=== PATIENT | male | born 1985 | race Caucasian/White ===

== ENCOUNTER 2021-03-12 16:06 | Emergency (ER) | payer SELFPAY ==
[2021-03-12 16:12] VITALS: BP 148/84; PULSE 91; RESP 18; TEMP 36.2; O2SAT 96
--- NOTE | 2021-03-12 16:24 | ED.WOUNDLAC ---
HPI - Wound/Laceration General Chief Complaint: Wound/Laceration Stated Complaint: cut finger Time Seen by Provider: 03/12/21 16:24 Source: patient Mode of arrival: ambulatory Limitations: no limitations History of Present Illness HPI narrative: 35-year-old male presents to the ER with a 2 cm laceration on the left lateral proximal phalanx of the index finger. He is right handed. He was using the clippers and accidentally cut his left index finger. The patient is up-to-date on his tetanus immunization. No other complaints. Onset (ago): minute(s) ( 45 minutes ago.) Location: other ( Left index finger) Extremity Location: Left: hand Place: home Patient tetanus UTD: Yes Context: accidental Associated symptoms: none Related Data Home Medications Medication Instructions Recorded Confirmed No Home Medications 03/12/21 03/12/21 Allergies Allergy/AdvReac Type Severity Reaction Status Date / Time tramadol AdvReac Unknown nausea/trouble Unverified 03/12/21 16:20 urinating Review of Systems Review of Systems: All systems reviewed & are unremarkable except as noted in HPI and below Exam Const: General: cooperative and healthy appearing HENMT: Head: normal to inspection Ears: hearing grossly normal bilaterally General nose exam: Normal external nose present Face and sinus: normal facial exam Mouth: Yes Normal oral and palatal mucosa present Throat: posterior oropharynx normal Eyes: General: appearance normal, both eyes and all related structures Neck: Neck: normal visual inspection Thyroid: thyroid normal Chest: Chest palpation & inspection: normal inspection of the chest Resp: Effort & Inspection: normal respiratory effort Auscultation: clear to auscultation bilaterally Cardio: Palpation: normal PMI Rate: regular rate Rhythm: regular rhythm Heart sounds: S1 normal heart sound present and S2 normal heart sound present GI: Inspection: normal to inspection : General: Yes bimanual renal exam normal bilaterally Back/Spine/Pelvis: Back: no CVA tenderness Skin: General skin exam: normal color Neuro: General: oriented to person, oriented to place, oriented to time and patient oriented x3 Cranial nerves: Yes CN's II-XII intact bilaterally Coordination: [id number] test normal Extrem: General: normal to inspection and full ROM Left upper extremity: hand ( 2 cm full-thickness skin laceration-L lateral proximal phalanx of index fi) normal capillary refill, neuromotor exam normal and neurosensory exam normal Psych: Appearance: grossly normal Course Course Emergency Course: The wound was cleaned with antiseptic. The 2 cm laceration was glued with Dermabond. Finger splint was applied to the wound. Vital Signs Vital signs: Vital Signs Temperature 36.2 C L 03/12/21 16:12 Pulse Rate 91 03/12/21 16:12 Respiratory Rate 18 03/12/21 16:12 Blood Pressure 148/84 H 03/12/21 16:12 Pulse Oximetry 96 03/12/21 16:12 Temperature 36.2 C L 03/12/21 16:12 Pulse Rate 91 03/12/21 16:12 Respiratory Rate 18 03/12/21 16:12 Blood Pressure 148/84 H 03/12/21 16:12 Pulse Oximetry 96 03/12/21 16:12 Procedures Laceration Laceration 1: Date: 03/12/21 Time: 16:43 Site: hand ( finger) Side (If applicable): left Size (cm): 2 Description: linear Depth: simple, single layer Pre-repair: wound explored ====== Skin Level ====== Skin layer closed with: dermabond ====== Subcutaneous Layer ====== ====== Muscle Layer ====== ====== Tendon Layer ====== Dressing: finger splint applied to prevent dehiscence. MDM - Wound/Laceration MDM Narrative Medical decision making narrative: Finger laceration Medical Records Medical records narrative: finger laceration. No tendon injury. Distal motor sensory was intact. Discharge Plan Discharge Clinical Impression: Finger laceration Qualifiers: Encount
--- NOTE | 2021-03-12 16:36 | PC.NURSE ---
gauze and aluminum finger splint applied to left index after repaired.
== END 2021-03-12 16:48 | disposition home or self-care (01) ==
PROVIDERS: Emergency Provider Internal Medicine Critical Care Medicine
DX: S61.211A Laceration without foreign body of left index finger without damage to nail, initial encounter (principal); W45.8XXA Other foreign body or object entering through skin, initial encounter
CPT/HCPCS: 12001; 99282

== ENCOUNTER 2023-11-05 23:05 | Emergency (ER) | payer SELFPAY ==
[2023-11-05 23:06] VITALS: BP 179/93; PULSE 69; RESP 18; TEMP 36.3; O2SAT 98
--- NOTE | 2023-11-05 23:10 | ED.DENTAL ---
HPI - Dental/Oral General Chief complaint: Dental/Oral Stated complaint: tooth pain Time Seen by Provider: 11/05/23 23:08 Source: patient Mode of arrival: ambulatory Limitations: no limitations History of Present Illness HPI Narrative: 38 year old male presents to the Emergency Department complaining of dental pain to left lower front tooth. States broke off several days ago. Has been taking Tylenol without relief. Uses marijuana daily [for anxiety] MD Complaint: tooth pain Onset (ago): day(s) (several) Duration: constant Severity: severe Relieving factors: nothing Exacerbating factors: nothing Context: poor dental care Associated symptoms: ear pain Treatment prior to arrival: oral analgesic (tylenol) Related Data Allergies Allergy/AdvReac Type Severity Reaction Status Date / Time tramadol AdvReac Unknown nausea/trouble Unverified 03/12/21 16:20 urinating Review of Systems Review of Systems: All systems reviewed & are unremarkable except as noted in HPI and below Constitutional: Constitutional: Reports as per HPI, Denies chills and Denies fever(s) Eyes: Eyes: Reports as per HPI ENT: Reports system reviewed and no additional complaints, except as documented Cardiovascular: Cardiovascular: Reports as per HPI and Denies chest pain Respiratory: Respiratory: Reports as per HPI and Denies dyspnea Gastrointestinal: Gastrointestinal: Reports as per HPI, Denies diarrhea, Denies nausea and Denies vomiting Genitourinary: Genitourinary: Reports no additional male genitourinary complaints Musculoskeletal: Musculoskeletal: Reports no additional musculoskeletal complaints Integumentary/Breasts: Skin/Breast: Reports system reviewed and no additional complaints, except as docu Neurologic: Reports system reviewed and no additional complaints, except as documented Psychiatric: Psychiatric: Reports no additional psychiatric complaints Endocrine: Endocrine: Reports no additional endocrine complaints Hematologic/Lymphatic: Hematologic/Lymphatic: Reports no additional hematologic/lymphatic complaints Allergic/Immunologic: Allergic/Immunologic: Reports no additional allergic/immunologic complaints Exam Const: General: healthy appearing Nutritional Appearance: well nourished Orientation/consciousness: patient oriented x3 Limitations: no limitations HENMT: Head: normal to inspection Ears: external ears normal Face/Nose/Sinus: Normal external nose present Face and sinus: normal facial exam Throat: posterior oropharynx normal Other: diffuse dental decay Eyes: Conjunctivae: conjunctivae normal Pupils: Equal, round and reactive pupils present EOM: EOMs intact bilaterally Direct Ophthalmoscopy: no photophobia Neck: Neck: normal visual inspection and no lymphadenopathy Chest: Chest palpation & inspection: normal inspection of the chest Resp: Effort & Inspection: normal respiratory effort Cardio: Rate: regular rate GI: Inspection: non-distended Back/Spine/Pelvis: Back: no CVA tenderness Skin: General skin exam: normal color Rashes: no rashes Neuro: General: patient oriented x3 Speech: normal speech Gait exam (Neuro): Normal gait present Other: grossly normal Extrem: General: normal to inspection Psych: Mental Status: mental status grossly normal Course Course Emergency Course: 38 y/o male presents to the Emergency Department complaining of dental pain. Onset several days ago. PE: diffuse dental decay Tx: Augmentin 875 mg po, [place] 10 mg po Rx and Instructions Vital Signs Vital signs: Vital Signs Temperature 36.3 C L 11/05/23 23:06 Pulse Rate 69 11/05/23 23:06 Respiratory Rate 18 11/05/23 23:06 Blood Pressure 179/93 H 11/05/23 23:06 Pulse Oximetry 98 11/05/23 23:06 Oxygen Delivery Room Air 11/05/23 23:06 Temperature 36.3 C L 11/05/23 23:06 Pulse Rate 69 11/05/23 23:06 Respiratory Rate 18 11/05/23 23:06 Blood Pressure 179/93 H 11/05/23 23:06
[2023-11-05] MEDS: HYDROcodone/acetaminophen (*CRX) 10-325 MG TABLET 1 TAB PO (23:38)
[2023-11-05] MEDS: AMOXICILLIN/CLAVULANATE K 875-125 MG TAB 1 TABLET PO (23:38)
== END 2023-11-05 23:53 | disposition home or self-care (01) ==
PROVIDERS: Emergency Provider Emergency Medicine
DX: F41.9 Anxiety disorder, unspecified (principal); R06.02 Shortness of breath; R07.89 Other chest pain; F17.200 Nicotine dependence, unspecified, uncomplicated
CPT/HCPCS: 99283; A9270

== ENCOUNTER 2024-02-05 16:02 | Emergency (ER) | payer SELFPAY ==
[2024-02-05 16:03] VITALS: BP 133/99; PULSE 76; RESP 18; TEMP 36.8; O2SAT 99
--- NOTE | 2024-02-05 16:12 | ED.GENADULT ---
HPI - General Adult General Chief complaint: Dental/Oral Stated complaint: tooth pain Time Seen by Provider: 02/05/24 16:12 Source: patient Mode of arrival: ambulatory Limitations: no limitations History of Present Illness HPI narrative: 38-year-old white male states he broke off a tooth, his cuspid left lower 1 week ago. Couple days ago it started swelling around the gum and hurting more. He has been taking Tylenol and ibuprofen. Denies any fever problems eating or drinking voiding or stooling cough shortness of breath other swelling lumps or bumps or any other complaints. Related Data Allergies Allergy/AdvReac Type Severity Reaction Status Date / Time tramadol AdvReac Unknown nausea/trouble Verified 02/05/24 16:04 urinating Review of Systems Review of Systems: All systems reviewed & are unremarkable except as noted in HPI and below PMFSH Comments Family history of bad teeth Exam Narrative: White male patient with no apparent distress.? Head normocephalic, atraumatic.? Eyes conjunctiva pink sclera nonicteric.? ? Oropharynx is clear with moist mucous membranes without exudates.? rotted teeth and missing teeth everywhere his left lower canine is broken off and decayed with surrounding gum tenderness. Neck is supple nontender no lymphadenopathy.?? Lungs are clear.? Heart is regular rate and rhythm without murmurs gallops or rubs .? Skin is warm and dry without rashes or lesions.? Neurological patient is alert and oriented x4.? Motor and sensory grossly intact.? Gait is normal. Course Vital Signs Vital signs: Vital Signs Oxygen Delivery Room Air 02/05/24 16:02 Temperature 36.8 C 02/05/24 16:03 Pulse Rate 76 02/05/24 16:03 Respiratory Rate 18 02/05/24 16:03 Blood Pressure 133/99 H 02/05/24 16:03 Pulse Oximetry 99 02/05/24 16:03 Oxygen Delivery Room Air 02/05/24 16:03 Medical Decision Making [facility] Narrative Medical decision making narrative: ? Patient placed in room: Three ? History and physical was performed. Independent Historian: patient External Source Review: Differential Dx includes but not limited to: dental abscess tooth decay Medications were Reviewed: home meds reviewed Medications given: Independently Interpreted by me: Shared decision Making: evaluation was discussed all questions were asked and answered patient agreed with the plan. He will take Pen VK 500 twice a day for 10 days follow up with his dentist. Social Situation Impacting Patients Care: Family history of bad teeth a young age. Discussed with Dr. IRIZARRY DIAGNOSIS: Dental abscess DISPOSITION : discharge CONDITION AT DISCHARGE: stable Vital Signs Vital Signs: Vital Signs Oxygen Delivery Room Air 02/05/24 16:02 Temperature 36.8 C 02/05/24 16:03 Pulse Rate 76 02/05/24 16:03 Respiratory Rate 18 02/05/24 16:03 Blood Pressure 133/99 H 02/05/24 16:03 Pulse Oximetry 99 02/05/24 16:03 Oxygen Delivery Room Air 02/05/24 16:03 Discharge Plan Discharge Clinical Impression: Dental abscess Patient Disposition: Home, Self-Care Condition: Stable Instructions: Antibiotic Form, Dental Abscess (ED) Additional Instructions: Pen-VK 250 m tablets twice a day for 10 days. Follow-up with your dentist. Take Tylenol and/or ibuprofen for pain as needed. Return if you get worse or develops any new symptoms. Prescriptions: New penicillin V potassium 250 mg tablet 500 mg PO Q12H 10 Days Qty: 40 0RF Follow-up/Referrals: UNKNOWN,DOCTOR [Primary Care Provider] - Time of Disposition: 16:31
== END 2024-02-05 16:43 | disposition home or self-care (01) ==
LOC: CHSED 16:39
PROVIDERS: Emergency Provider Emergency Medicine
DX: K04.7 Periapical abscess without sinus (principal)
CPT/HCPCS: 99283

== ENCOUNTER 2024-08-20 12:19 | Emergency (ER) | payer SELFPAY ==
[2024-08-20 12:20] VITALS: BP 139/88; PULSE 71; RESP 16; TEMP 36.6; O2SAT 97
--- NOTE | 2024-08-20 12:25 | ED_ITS ---
HPI - Wound/Laceration General Chief Complaint: Wound/Laceration Stated Complaint: cut left hand thumb Time Seen by Provider: 08/20/24 12:25 Source: patient Mode of arrival: ambulatory Limitations: no limitations History of Present Illness HPI narrative: 39-year-old male with no significant past medical history presented to the ED with -- left thumb superficial laceration which is U- shaped with a 0.5 cm traumatic ulcer. He got hurt while cutting vegetables. no other injuries noted. This happened prior to coming to the ED. Onset (ago): hour(s) ( 1 hour) Extremity Location: Left: hand Body four view annotation: 2 1. U shape but superficial laceration measuring 2 cm 2. 0.[address]: work Patient tetanus UTD: No Context: accidental Associated symptoms: none Related Data Allergies Allergy/AdvReac Type Severity Reaction Status Date / Time tramadol AdvReac Unknown nausea/trouble Verified 02/05/24 16:04 urinating Review of Systems 2 Review of Systems: All systems reviewed & are unremarkable except as noted in HPI and below Exam 2 Narrative: vitals are stable Const: General: healthy appearing Nutritional Appearance: well nourished Orientation/consciousness: patient oriented x3 Limitations: no limitations HENMT: Head: normal to inspection Ears: external ears normal F ghulam/Nose/Sinus: Normal external nose present Face and sinus: normal facial exam Mouth: Yes Normal oral and palatal mucosa present Throat: posterior oropharynx normal Eyes: Conjunctivae: conjunctivae normal Pupils: Equal, round and reactive pupils present EOM: EOMs intact bilaterally Direct Ophthalmoscopy: no photophobia Neck: Neck: normal visual inspection, no lymphadenopathy and no meningeal signs Chest: Chest palpation & inspection: normal inspection of the chest Resp: Effort & Inspection: normal respiratory effort Auscultation: clear to auscultation bilaterally Cardio: Rate: regular rate Rhythm: regular rhythm GI: GI Palp: Yes Soft to palpation Auscultation: normal bowel sounds O ther: no tenderness/rigidity /rebound Back/Spine/Pelvis: Back: no CVA tenderness Skin: General skin exam: normal color Rashes: no rashes Other: left thumb has a U-shaped superficial laceration measuring 2 cm 0.5 cm traumatic ulcer Neuro: General: patient oriented x3, moves all extremities and no meningeal signs Cranial nerves: Yes Nystagmus not present Speech: normal speech G ait exam (Neuro): Normal gait present Extrem: General: normal to inspection Other: left thumb laceration/traumatic ulcer Psych: Mental Status: mental status grossly normal Affect: normal affect Attitude: cooperative Course Course Emergency Course: thumb laceration-- glued with Dermabond Vital Signs Vital signs: Vital Signs Temperature 36.6 C 08/20/24 12:20 Pulse Rate 71 08/20/24 12:20 Respiratory Rate 16 08/20/24 12:20 Blood Pressure 139/88 08/20/24 12:20 Pulse Oximetry 97 08/20/24 12:20 Oxygen Delivery Room Air 08/20/24 12:20 Temperature 36.6 C 08/20/24 12:20 Pulse Rate 71 08/20/24 12:20 Respiratory Rate 16 08/20/24 12:20 Blood Pressure 139/88 08/20/24 12:20 Pulse Oximetry 97 08/20/24 12:20 Oxygen Delivery Room Air 08/20/24 12:20 Procedures Laceration Laceration 1: Date: 08/20/24 Time: 12:48 Site: upper extremity and hand Size (cm): 2 Description: irregular Depth: simple, single layer ====== Skin Level ====== Skin layer closed with: dermabond ====== Subcutaneous Layer ====== ====== Muscle Layer ====== ====== Tendon Layer ====== MDM - Wound/Laceration MDM Narrative Medical decision making narrative: thumb laceration Differential Diagnosis Differential diagnosis: Likely laceration and avulsion of skin Discharge Plan Discharge Clinical Impression: Laceration of thumb Patient Disposition: Home Condition: Stable Instructions: Antibiotic Form, Finger Laceration (ED) Patient Language: Yakut Prescriptions: No Action penicillin V potassium 250 mg tablet 500 mg PO Q12H 10 Days Qty: 40 0RF Follow-up/Referrals: UNKNOWN,DOCTOR [Non-Staff] - Stand Alone Forms: Work/School Release IP Time of Disposition: 12:49
[2024-08-20] MEDS: TETANUS,DIPHTHERIA,AC PERTUSSIS ADULT 0.5 ML (ADACEL) IM (12:48)
== END 2024-08-20 13:02 | disposition home or self-care (01) ==
LOC: CHSED 12:59
PROVIDERS: Emergency Provider Internal Medicine Critical Care Medicine; PCP Family Medicine
DX: S61.012A Laceration without foreign body of left thumb without damage to nail, initial encounter (principal); W26.0XXA Contact with knife, initial encounter; Z23 Encounter for immunization
CPT/HCPCS: 12001; 90471; 90715; 99283

== ENCOUNTER 2025-02-03 12:52 | Emergency (ER) | payer SELFPAY ==
--- NOTE | ~2025-02-03 | CT_ITS ---
EXAMINATION: CT abdomen pelvis wo con, 02/03/2025 13:50 CDT HISTORY: LBP, dark urine, +strep COMPARISON: No comparisons available. TECHNIQUE: CT scan of the abdomen and pelvis was performed without IV contrast. One or more of the following dose reduction techniques were used: automated exposure control, adjustment of the mA and/or kV according to patient size, use of iterative reconstruction technique. Unless otherwise stated, incidental findings do not require dedicated follow up imaging FINDINGS: CT abdomen: LUNG BASES: The lung bases are clear. The visualized portions of the heart and pericardium are unremarkable. LIVER: Unremarkable, liver contours intact, no lesions. SPLEEN: Unremarkable, no splenomegaly. KIDNEYS: Right Kidney: Right kidney 3 mm renal calculus, no hydronephrosis or hydroureter. Left Kidney: Left kidney renal calculi noted the largest in the renal pelvis 3 x 3 mm, no hydronephrosis or hydroureter. ADRENAL GLANDS: Unremarkable. PANCREAS: Unremarkable. GALLBLADDER/BILIARY: Unremarkable. No biliary dilatation. STOMACH AND ESOPHAGUS: Visualized stomach and esophagus within normal limits. BOWEL/MESENTERY: Moderate fecal content, no colitis or diverticulitis. Appendix normal. Mesentery normal. Small bowel normal. ADENOPATHY/RETROPERITONEUM: No lymphadenopathy. AORTA/VASCULATURE: Normal caliber aorta. FREE FLUID OR FREE AIR: None. CT pelvis: SOLID ORGANS/REPRODUCTIVE: Unremarkable. BLADDER: Within normal limits. OSSEOUS STRUCTURES: No acute osseous abnormality.No suspicious lesions. OVERLYING SOFT TISSUES: Unremarkable. IMPRESSION: 1. Bilateral renal calculi. No hydronephrosis Reviewed, dictated and finalized at location P.
[2025-02-03 12:52] VITALS: BP 162/104; PULSE 84; RESP 16; TEMP 36.8; O2SAT 97; O2SAT 98
[2025-02-03 13:24] LABS: Hematocrit 42.8 % (40.0-54.0); Hemoglobin 15.0 g/dL (14.0-18.0); Immature Granulocyte Percent A 0.6 % (0.0-0.0); Lymphocytes Absolute Auto 1.51 K/mm3 (1.10-4.50); Mean Corpuscular HGB Conc 35.0 g/dL (32-36); Mean Corpuscular Hemoglobin 31.0 pg (27.0-31.0); Mean Corpuscular Volume 88.4 fL (78.0-102.0); Nucleated Red Blood Cells Absolute Auto 0.00 K/mm3 (0.00-0.00); Nucleated Red Blood Cells Perc 0.0 % (0-0.0); Platelet Count Result 225 K/mm3 (150-420); Red Blood Count 4.84 M/mm3 (4.70-6.10); White Blood Count 16.3 K/mm3 (4.8-10.8)
[2025-02-03 13:41] LABS: Add Urine Microscopic? YES; Appearance Urine Cloudy (Clear); Glucose Urine UA Negative (Negative); Leukocyte Esterase Ur Negative (Negative); Nitrate Urine Negative (Negative); Specific Grav Ur 1.025 (1.010-1.020)
[2025-02-03 13:44] LABS: Anion Gap 12 mmol/L (4-12); Blood Urea Nitrogen 17 mg/dL (9-20); Calcium 10.0 mg/dL (8.4-10.2); Carbon Dioxide 24 mmol/L (22-30); Chloride 101 mmol/L (98-107); Estimated CRCL calculation 78 ml/min; Estimated Glomerular Filt Rate > 60; Glucose 127 mg/dL (65-110); Osmolality Calculated 287 mOsm/kg (285-295); Potassium 3.6 mmol/L (3.4-5.0); Sodium 137 mmol/L (137-145)
[2025-02-03 13:45] LABS: Strep Group A RT-PCR DETECTED (Negative)
[2025-02-03 14:00] LABS: Influenza A QL RT-PCR Negative (Negative); Influenza B QL RT-PCR Negative (Negative); RSV RNA, RT-PCR Negative (Negative); SARS-CoV-2 RNA PCR Negative (Negative)
[2025-02-03 14:08] VITALS: BP 150/87; PULSE 75; RESP 16; O2SAT 99
--- NOTE | 2025-02-03 14:33 | ED_ITS ---
HPI - General Adult General Chief complaint: Upper Respiratory Infection Stated complaint: sore throat, fever, nausea Time Seen by Provider: 02/03/25 13:06 Source: patient Mode of arrival: ambulatory Limitations: no limitations History of Present Illness HPI narrative: 39-year-old otherwise healthy here complaints of sore pain, not feeling well for past few days also has dysuria. has occasional cough which is he states that he had fever chills. Denies any nausea vomiting or pain. Has some occasional low back pain. Onset (ago): day(s) (1) Location: back Severity: moderate Quality: aching Pain Consistency: constant Relieving factors: none Exacerbating factors: none Associated symptoms: denies other symptoms Treatments prior to arrival: other ( Tylenol) Related Data Allergies Allergy/AdvReac Type Severity Reaction Status Date / Time tramadol AdvReac Unknown nausea/trouble Verified 02/03/25 13:06 urinating Review of Systems 2 Review of Systems: All systems reviewed & are unremarkable except as noted in HPI and below Constitutional: Constitutional: Reports no additional constitutional complaints ENT: Reports as per HPI Cardiovascular: Cardiovascular: Reports no additional cardiovascular complaints Respiratory: Respiratory: Reports as per HPI Gastrointestinal: Gastrointestinal: Reports no additional gastrointestinal complaints Genitourinary: Genitourinary: Reports as per HPI Musculoskeletal: Musculoskeletal: Reports as per HPI Integumentary/Breasts: Skin/Breast: Reports as per HPI Neurologic: Reports system reviewed and no additional complaints, except as documented Exam 2 Narrative: GENERAL: Well-appearing, well-nourished, and in no acute distress. HEAD: Normocephalic, atraumatic. EYES: PERRLA and EOMI. ENT: Nares clear, no rhinorrhea or epistaxis. Mucous membranes moist. uvula midline minimal erythema of the left tonsil no exudate NECK: Supple. CHEST: Clear to auscultation. No respiratory distress. HEART: Regular rate and rhythm. No murmur heard. Normal peripheral pulses. ABDOMEN: Soft, nontender, nondistended, normal active bowel sounds. EXTREMITIES: Normal range of motion. No edema. SKIN: Warm, dry, no rash. NEURO: No focal deficits. Alert and oriented x3. PSYCH: Normal mood and affect. Course Course Emergency Course: I did review his lab work UA was positive for blood will do CT of the abdomen rule out ureteral stone. Otherwise his the strep screen was positive and WBC count was 16,000 will give IM Rocephin 1 g. Vital Signs Vital signs: Vital Signs Temperature 36.8 C 02/03/25 12:52 Pulse Rate 84 02/03/25 12:52 Respiratory Rate 16 02/03/25 12:52 Blood Pressure 162/104 H 02/03/25 12:52 Pulse Oximetry 98 02/03/25 12:52 Oxygen Delivery Room Air 02/03/25 12:52 Temperature 36.8 C 02/03/25 12:52 Pulse Rate 75 02/03/25 14:08 Respiratory Rate 16 02/03/25 14:08 Blood Pressure 150/87 H 02/03/25 14:08 Pulse Oximetry 99 02/03/25 14:08 Oxygen Delivery Room Air 02/03/25 14:08 Medical Decision Making MDM Narrative Medical decision making narrative: 39-year-old otherwise disorder, dysuria new lab work including CBC chemistry strep screen and UA and a CT of the abdomen has he was complaining of flank pain Differential Diagnosis Differential Diagnosis: viral pharyngitis, strep throat, UTI Vital Signs Vital Signs: Vital Signs Temperature 36.8 C 02/03/25 12:52 Pulse Rate 84 02/03/25 12:52 Respiratory Rate 16 02/03/25 12:52 Blood Pressure 162/104 H 02/03/25 12:52 Pulse Oximetry 98 02/03/25 12:52 Oxygen Delivery Room Air 02/03/25 12:52 Temperature 36.8 C 02/03/25 12:52 Pulse Rate 75 02/03/25 14:08 Respiratory Rate 16 02/03/25 14:08 Blood Pressure 150/87 H 02/03/25 14:08 Pulse Oximetry 99 02/03/25 14:08 Oxygen Delivery Room Air 02/03/25 14:08 Lab Data Lab results reviewed: Yes I reviewed the patient's lab results. 02/03/25 13:17 02/03/25 13:17 Labs: Lab Results 02/03/25 02/03/25 Range/Units 13:17 13:32 WBC 16.3 H (4.8-10.8) K/mm3 RBC 4.84 (4.70-6.10) M/mm3 Hgb 15.0 (14.0-18.0) g/dL Hct 42.8 (40.0-54.0) % MCV 88.4 (78.0-102.0) fL MCH 31.0 (27.0-31.0) pg MCHC 35.0 (32-36) g/dL RDW 12.7 (11.6-14.4) % Plt Count 225 (150-420) K/mm3 MPV 10.0 (8.7-11.0) fl Immature Gran % (Auto) 0.6 H (0.0-0.0) % Neut % (Auto) 74.5 H (50.0-70.0) % Lymph % (Auto) 9.3 L (18.0-42.0) % [place] % (Auto) 15.2 H (2.0-11.0) % Eos % (Auto) 0.1 L (1.0-6.0) % Baso % (Auto) 0.3 (0.0-1.0) % Lymph # (Auto) 1.51 (1.10-4.50) K/mm3 [place] # (Auto) 2.48 H (0.10-0.90) K/mm3 Eos # (Auto) 0.01 L (0.02-0.50) K/mm3 Baso # (Auto) 0.05 (0.00-0.10) K/mm3 Abs Immat Gran (auto) 0.09 H (0.00-0.00) K/mm3 Absolute Neuts (auto) 12.13 H (1.70-7.20) K/mm3 Absolute Nucleated RBC 0.00 (0.00-0.00) K/mm3 Nucleated RBC % 0.0 (0-0.0) % Sodium 137 (137-145) mmol/L Potassium 3.6 (3.4-5.0) mmol/L Chloride 101 (98-107) mmol/L Carbon Dioxide 24 (22-30) mmol/L Anion Gap 12 (4-12) mmol/L BUN 17 (9-20) mg/dL Creatinine 0.89 (0.7-1.3) mg/dL Estim Creat Clear Calc 78 ml/min Estimated GFR > 60 (59 - ) Glucose 127 H (65-110) mg/dL Calculated Osmolality 287 (285-295) mOsm/kg Calcium 10.0 (8.4-10.2) mg/dL Urine Color Dark yellow (Yellow) Urine Appearance Cloudy A (Clear) Urine pH 5.5 (5.0-8.0) Ur Specific [place] 1.025 H (1.010-1.020) Urine Protein 3+ H (Negative) Urine Glucose (UA) Negative (Negative) Urine Ketones 1+ H (Negative) Ur Blood (Man) 3+ H (Negative) Urine Nitrate Negative (Negative) Urine Bilirubin 2+ H (Negative) Urine Urobilinogen 2.0 H (0.2-1.0) mg/dL Ur Leukocyte Esterase Negative (Negative) Urine RBC >75 H (0-2) /hpf Urine WBC None seen (0-3) /hpf Ur Squamous Epith Cells Rare (Few) /hpf Urine Bacteria 1+ H (None) /hpf Granular Casts 1-2 H (None) /lpf Influenza A (RT-PCR) Negative (Negative) Influenza B (RT-PCR) Negative (Negative) RSV (RT-PCR) Negative (Negative) SARS-CoV-2 RNA (RT-PCR) Negative (Negative) Group A Strep (PCR) Detected A (Negative) Imaging Data Radiologist's impression: ITS Impressions Abdomen/Pelvis CT 02/03/25 14:13 IMPRESSION: 1. Bilateral renal calculi. No hydronephrosis Discharge Plan Discharge Clinical Impression: Strep pharyngitis, Hematuria, microscopic Patient Disposition: Home Condition: Stable Instructions: Antibiotic Form, Strep Throat (ED) Additional Instructions: take antibiotic as prescribed , take tylenol or 0ibuprofen body aches and fever drink fluids Patient Language: Maori Prescriptions: New amoxicillin 875 mg tablet 875 mg PO Q12H Qty: 14 0RF Follow-up/Referrals: PHYSICIAN,MEAT APPRENTICE [Primary Care Provider, Internal Medicine] Stand Alone Forms: Work/School Release IP Time of Disposition: 14:41
[2025-02-03] MEDS: cefTRIAXone 1 GM, LIDOCAINE 1% LOCAL INJ 2.1 ML IM (14:49)
--- NOTE | 2025-02-03 14:53 | PC.NURSE ---
ERP aware of pt's vital signs. No new orders.
== END 2025-02-03 15:05 | disposition home or self-care (01) ==
PROVIDERS: Emergency Provider Family Medicine; Referring Provider Internal Medicine
DX: J02.0 Streptococcal pharyngitis (principal); R31.29 Other microscopic hematuria; Z20.822 Contact with and (suspected) exposure to COVID-19
CPT/HCPCS: 36415; 74176; 80048; 81001; 85025; 87637; 87651; 96372; 99284; J0696; J2003